=== PATIENT | male | born 1955 | race Caucasian/White ===

== ENCOUNTER → 2017-01-04 | Outpatient (CLI) | payer BC | END | disposition home or self-care (01) | LOC: GMAJ 10:23 | PROVIDERS: ATTEND Family Medicine | DX: Z12.5 Encounter for screening for malignant neoplasm of prostate (principal) ==

== ENCOUNTER → 2017-02-02 | Outpatient (CLI) | payer BC ==
--- NOTE | 2017-02-02 15:38 | CT ---
EXAM DESCRIPTION: Abdomen/Pelvis w/Contrast CLINICAL HISTORY: PROSTATE CA COMPARISON: August 20, 2011 TECHNIQUE: CT of the abdomen and Pelvis was performed with IV contrast. This exam was performed according to our departmental dose-optimization program, which includes automated exposure control, adjustment of the mA and/or kV according to patient size and/or use of iterative reconstruction technique. FINDINGS: The prostate is enlarged, measuring just under 6 cm transverse diameter. There is no pelvic adenopathy or free pelvic fluid. No bladder wall thickening. No rectal wall thickening or perirectal inflammation. Is no colonic diverticular disease. There is a suture line in the distal small bowel without small bowel wall thickening. Hazy appearance of the mesentery is unchanged from August, and of questionable clinical significance. There are a few noncalcified nodules in the lung bases, the largest measuring 6 mm diameter in the right lower lobe (series 2 image 4). There is no pneumoperitoneum, adenopathy or ascites. Several calcified gallstones are noted in the gallbladder without pericholecystic inflammation or fluid. The liver, spleen, pancreas, adrenals and kidneys are unremarkable. No lytic or sclerotic bone lesion. IMPRESSION: Enlarged prostate, but no evidence of metastatic disease or pelvis. Several small noncalcified nodules in the lung bases measuring up to 6 mm diameter, nonspecific. Findings may be related to granulomatous disease, but metastatic disease is not excluded. Chest CT is suggested to exclude the possibility of additional larger lung nodules. Cholelithiasis without CT evidence of cholecystitis. Electronically signed by: Sajan Anguiano MD 02/02/2017 3:37 PM CDT
== END | disposition home or self-care (01) ==
LOC: CT 07:06
PROVIDERS: ATTEND Urology
DX: C61 Malignant neoplasm of prostate (principal)

== ENCOUNTER → 2017-09-22 | Outpatient (CLI) | payer BC | END | disposition home or self-care (01) | LOC: GMAJ 10:39 | PROVIDERS: ATTEND Family Medicine | DX: I10 Essential (primary) hypertension (principal) ==

== ENCOUNTER → 2018-05-12 | Outpatient (CLI) | payer BC | LOC: GMAJ 10:47 | PROVIDERS: ATTEND Family Medicine | DX: Z00.00 Encounter for general adult medical examination without abnormal findings (principal) ==

== ENCOUNTER → 2019-02-21 | Outpatient (CLI) | payer BC | LOC: LAB.O 14:12 | PROVIDERS: ATTEND Urology | DX: R97.20 Elevated prostate specific antigen [PSA] (principal) ==

== ENCOUNTER → 2019-07-18 | Outpatient (CLI) | payer BC | LOC: GMAJ 11:43 | PROVIDERS: ATTEND Family Medicine | DX: C61 Malignant neoplasm of prostate (principal); I50.9 Heart failure, unspecified; I10 Essential (primary) hypertension ==

== ENCOUNTER → 2020-08-05 | Outpatient (CLI) | payer BC | LOC: GMAJ 14:23 | PROVIDERS: ATTEND Family Medicine | DX: C61 Malignant neoplasm of prostate (principal); I10 Essential (primary) hypertension; I50.9 Heart failure, unspecified ==